=== PATIENT | male | born 1955 | race Caucasian/White ===

== ENCOUNTER 2017-01-17 21:15 | Emergency (ER) | payer OTHER ==
[2017-01-17 21:27] VITALS: BMI 26.6
[2017-01-17] MEDS ORDERED: SODIUM CHLORIDE 1,000 ML IV STA (21:49)
[2017-01-17] MEDS ORDERED: DUONEB NEB STA (21:49)
--- NOTE | 2017-01-17 21:49 | ED.PDOC ---
General ED Provider: Dr. SPENCER HENSON Chief Complaint: Fever Stated Complaint: Patient comes to the Er with Fever Tmax 102.8 cough productive of yelow sputum worsening of shortness of breath. Time Seen by Physician: 21:47 Mode of Arrival: Wheelchair Information Source: Patient, Family Primary Care Provider: JEANMARIE PADILLA Nursing and Triage Documentation Reviewed and Agree: Yes Miscellaneous Complaint Exam - Febrile Illness/Adult Complaint/Exam Onset/Duration: 1 day Symptoms Are: Still present Timing: Constant Highest Temperature Recorded: 104 Initial Severity: Severe Current Severity: Moderate Associated Signs and Symptoms: Reports: Short of air, Cough Current Antibiotic Use: No Last Time and Dose of Motrin (ibuprofen): Asprin one hour prior to arrival Differential Diagnoses: Pneumonia Quality Indicator For Non-Traumatic Chest Pain/Syncope: EKG Performed Review of Systems - Review Of Systems Constitutional: Reports: Fever, Malaise, Loss of appetite Respiratory: Reports: Cough, Short of air, Wheezing Cardiac: Reports: No symptoms GI: Reports: No symptoms : Reports: No symptoms Musculoskeletal: Reports: No symptoms Skin: Reports: No symptoms Neurological: Reports: No symptoms Endocrine: Reports: No symptoms Hematologic/Lymphatic: Reports: No symptoms All Other Systems: Reviewed and Negative Past Medical History - Past Medical History Endocrine: Reports: None Cardiovascular: Reports: Hypertension Respiratory: Reports: None Hematological: Reports: None Gastrointestinal: Reports: None Genitourinary: Reports: None Neuro/Psych: Reports: Anxiety, Other ( panic attacks ) Musculoskeletal: Reports: None Cancer: Reports: None Other Pertinent Past Medical History: saw urologist dr henderson in November follow up in six months - Surgical History General Surgical History: Reports: Back Surgery (5 back surgeries) - Family History Family History: Reports: Unknown - Social History Smoking Status: Current every day smoker, Light tobacco smoker Hx Substance Use: No Alcohol Screening: Occasionally - Immunizations Tetanus Shot up to Date: Yes Physical Exam - Physical Exam Appearance: Ill-appearing, Well-nourished Ill-appearing: Moderate Eyes: ELTON, EOMI, Conjunctiva clear ENT: Ears normal, Nose normal, Oropharynx normal Neck: Supple Respiratory: Airway patent, Breath sounds diminished, Respirations nonlabored, Rhonchi, Wheezes Cardiovascular: Pulses normal, No rub, No murmur, Tachycardia GI/: Soft, Nontender, No masses, Bowel sounds normal, No Organomegaly Musculoskeletal: Normal strength, ROM intact, No edema, No calf tenderness Skin: Warm, Dry, Normal color Neurological: Sensation intact, Motor intact, Reflexes intact, Cranial nerves intact, Alert, Oriented Psychiatric: Anxious Interpretation - Radiology Interpretation Radiology Interpretation By: Radiologist Radiology Results: Positive (no PE but bilateral infiltrates) Exam Interpreted: CT Scan Physician Notification - Case Discussed Physician Notified: Dr. Padilla Time of Notification: 02:08 (Transfer to [facility] ) Critical Care Note - Critical Care Note Total Time (mins): 30 Course - Course Hematology/Chemistry: 01/17/17 22:13 01/17/17 22:13 Orders, Labs, Meds: Lab Review 01/17/17 01/17/17 01/17/17 21:49 22:01 22:13 WBC 14.16 H RBC 4.30 L Hgb 10.7 L Hct 32.9 L MCV 76.5 L MCH 24.9 L MCHC 32.5 RDW Coeff of Mandy 17.1 H Plt Count 268 Immature Gran % (Auto) 0.3 Neut % (Auto) 81.1 Lymph % (Auto) 8.9 L [place] % (Auto) 7.8 Eos % (Auto) 1.5 Baso % (Auto) 0.4 Immature Gran # (Auto) 0.0 Neut # 11.5 H Lymph # 1.3 [place] # 1.1 Eos # 0.2 Baso # 0.1 D-Dimer 1.02 Puncture Site Rr O2 Saturation 88.0 L ABG pH 7.471 H ABG pCO2 36.4 ABG pO2 50.0 L* ABG HCO3 26.6 H ABG Total CO2 28 ABG Base Excess 3 H [place] Test + FiO2 % 21.0 Sodium 136 Potassium 3.6 Chloride 100 Carbon Dioxide 26 Anion Gap 13.6 BUN 9 Creatinine 0.90 Estimated GFR (MDRD) 86.00 BUN/Creatinine Ratio 10.00 Glucose 95 Lactic Acid 9.6 Calcium 9.4 Total Bilirubin 0.27 AST 31 ALT 22 Alkaline Phosphatase 110 Troponin I 0.0280 Total Protein 7.4 Albumin 3.3 L Globulin 4.1 Albumin/Globulin Ratio 0.80 Procalcitonin 1.22 Urine Color Urine Clarity Urine pH Ur Specific [place] Urine Protein Urine Glucose (UA) Urine Ketones Urine Blood Urine Nitrite Urine Bilirubin Urine Urobilinogen Ur Leukocyte Esterase Influenza A (Rapid) Negative Influenza B (Rapid) Negative 01/18/17 01:45 WBC RBC Hgb Hct MCV MCH MCHC RDW Coeff of Mandy Plt Count Immature Gran % (Auto) Neut % (Auto) Lymph % (Auto) [place] % (Auto) Eos % (Auto) Baso % (Auto) Immature Gran # (Auto) Neut # Lymph # [place] # Eos # Baso # D-Dimer Puncture Site O2 Saturation ABG pH ABG pCO2 ABG pO2 ABG HCO3 ABG Total CO2 ABG Base Excess [place] Test FiO2 % Sodium Potassium Chloride Carbon Dioxide Anion Gap BUN Creatinine Estimated GFR (MDRD) BUN/Creatinine Ratio Glucose Lactic Acid Calcium Total Bilirubin AST ALT Alkaline Phosphatase Troponin I Total Protein Albumin Globulin Albumin/Globulin Ratio Procalcitonin Urine Color Yellow Urine Clarity Clear Urine pH 7.5 Ur Specific [place] 1.015 Urine Protein Negative Urine Glucose (UA) Negative Urine Ketones Negative Urine Blood Negative Urine Nitrite Negative Urine Bilirubin Negative Urine Urobilinogen 0.2 Ur Leukocyte Esterase Negative Influenza A (Rapid) Influenza B (Rapid) Orders Category Date Time Status ABG DRAW REQUEST Stat CARDIO 01/17/17 21:49 Completed EKG-(ED ONLY) Stat CARDIO 01/17/17 21:50 Completed NEBULIZER TREATMENT Stat CARDIO 01/17/17 21:49 Completed NPO REMINDER: IMAGING ONCE CARE 01/17/17 23:47 Completed ED IV/MEDIPORT/POWERPORT .ONCE EMERGENCY 01/17/17 21:49 Active ED IV/MEDIPORT/POWERPORT .ONCE EMERGENCY 01/18/17 00:29 Active ABG Stat LAB 01/17/17 21:49 Completed BLOOD CULTURE Stat LAB 01/17/17 22:13 Results CBC W/ AUTO DIFF Stat LAB 01/17/17 22:13 Completed COMPREHENSIVE METABOLIC PANEL Stat LAB 01/17/17 22:13 Completed D-DIMER Stat LAB 01/17/17 22:13 Completed LACTIC ACID Stat LAB 01/17/17 22:13 Completed MOLECULAR GROUP A STREP Stat LAB 01/17/17 22:01 Completed PROCALCITONIN Stat LAB 01/17/17 22:13 Completed RAPID FLU A/B Stat LAB 01/17/17 22:01 Completed STREP SCREEN Stat LAB 01/17/17 22:01 Completed TROPONIN I Stat LAB 01/17/17 22:13 Completed UA [URINALYSIS C & S IF INDICATED] Stat LAB 01/18/17 01:45 Completed 0.9 % Sodium Chloride [Saline Flush] MEDS 01/17/17 21:49 Discontinued 1 syr IVF PRN PRN 0.9 % Sodium Chloride [Saline Flush] MEDS 01/18/17 00:29 Discontinued 1 syr IVF PRN PRN Acetaminophen [Tylenol] MEDS 01/17/17 22:42 Discontinued 1,000 mg PO ONCE STA Ipratropium/Albuterol Neb [Duoneb] MEDS 01/17/17 21:49 Discontinued 1 vial NEB ONCE STA Methylprednisolone Sod Succ/Pf [Solu-Medrol 125 mg] MEDS 01/17/17 22:55 Discontinued 125 mg IVP ONCE STA Piperacillin Sodium/Tazobactam [Zosyn 3.375 gm] 3.375 MEDS 01/18/17 02:06 Discontinued gm 0.9 % Sodium Chloride [Sodium Chloride] 100 ml IV ONCE Sodium Chloride 0.9% [Sodium Chloride] 1,000 ml MEDS 01/17/17 21:49 Discontinued IV BOLUS CHEST, 2 VIEWS PA & LAT Stat RADS 01/17/17 21:[address] CHEST PE PROTOCOL Stat RADS 01/18/17 00:15 Completed Medications Discontinued Medications Generic Name Dose Route Start Last Admin Trade Name Freq PRN Reason Stop Dose Admin Acetaminophen 1,000 mg 01/17/17 22:42 01/17/17 22:49 Tylenol PO 01/17/17 22:43 1,000 mg ONCE STA Administration Albuterol/Ipratropium 1 vial 01/17/17 21:49 01/17/17 22:42 Duoneb NEB 01/17/17 21:50 1 vial ONCE STA Administration Sodium Chloride 1,000 mls @ 1,000 mls/hr 01/17/17 21:49 01/17/17 22:27 Sodium Chloride IV 01/17/17 22:48 1,000 mls/hr BOLUS STA Administration Piperacillin Sod/Tazobactam 100 mls @ 100 mls/hr 01/18/17 02:06 01/18/17 02: 24 Sod 3.375 gm/ Sodium Chloride IV 01/18/17 03:05 100 mls/hr ONCE STA Administration Methylprednisolone Sodium Succinate 125 mg 01/17/17 22:55 01/17/17 23:05 Solu-Medrol 125 Mg IVP 01/17/17 22:56 125 mg ONCE STA Administration Sodium Chloride 1 syr 01/17/17 21:49 Saline Flush IVF PRN PRN To flush IV Sodium Chloride 1 syr 01/18/17 00:29 Saline Flush IVF PRN PRN To flush IV Vital Signs: Temp Pulse Resp BP Pulse Ox 01/18/17 02:20 98 F 105 H 20 121/88 96 01/17/17 21:16 103.6 F H 133 H 24 133/62 92 L Departure - Departure Time of Disposition: 02:07 Disposition: TSF SHORT-TRM HOSP Discharge Problem: Pneumonia Condition: Stable Pt referred to PMD for follow-up: Yes Allergies/Adverse Reactions: Allergies venom-honey bee [bee venom (honey bee)] Adverse Reaction (Verified 01/17/17 21: 25) Difficulty Breathing HAS EPI PEN Home Medications: Ambulatory Orders Cetirizine HCl [Zyrtec] 10 mg PO DAILY PRN 10/09/16 Cyclobenzaprine HCl [Flexeril] 10 mg PO TID 10/09/16 Escitalopram Oxalate [Lexapro] 20 mg PO DAILY 10/09/16 Gabapentin [Neurontin] 800 mg PO TID 10/09/16 Lisinopril/Hydrochlorothiazide [Lisinopril-Hctz 10-12.5 mg Tab] 20 mg PO DAILY 10/09/16 Meloxicam 15 mg PO DAILY 10/09/16 Mometasone Furoate [Asmanex Hfa] 220 mcg INH Q1-2H 10/09/16 Morphine Sulfate [Morphine Sulfate ER] 30 mg PO BID 10/09/16 Pantoprazole Sodium [Protonix] 40 mg PO QPM 10/09/16 Pregabalin [Lyrica] 150 mg PO TID 10/09/16 Zolpidem Tartrate [Ambien Cr] 10 mg PO BEDTIME 10/09/16 Albuterol Sulfate [Proair Hfa] 2 puff IH QID #1 puff 10/14/16 Aspirin/Calcium Carbonate/Mag [Aspirin Buffered 325 mg Tab] 325 mg PO DAILY Bisacodyl [Dulcolax] 5 mg PO DAILY PRN 01/17/17 Calcium Carb & Citrate/Vit D3 [Calcium + D3 ER Tablet] 1 tab PO BID 01/17/17 Methylcellulose [Citrucel] 500 mg PO TID 01/17/17 Multivitamin [Daily Multiple Vitamin] 1 each PO DAILY 01/17/17 Ondansetron HCl [Zofran Tab] 8 mg PO Q8H PRN 01/17/17 Hydrocodone Bit/Acetaminophen [[place] 5-325] 5 - 325 mg PO Q4HR PRN 01/18/17 Pt. Stabilized Within Hospital's Capabilities/Transferred To: [facility] Transfer Form Completed: Yes Disposition Discussed With: Patient, Family
[2017-01-17 22:19] LABS: BASOPHILS # (AUTO) 0.1 K/uL (0-0.2); BASOPHILS % (AUTO) 0.4 % (0.0-3.0); EOSINOPHILS # (AUTO) 0.2 K/ul (0.0-0.7); EOSINOPHILS % (AUTO) 1.5 % (0.0-7.0); HEMATOCRIT 32.9 % (42.0-52.0); HEMOGLOBIN 10.7 g/dl (14.0-18.0); IMMATURE GRANULOCYTE % (AUTO) 0.3 % (0.0-5.0); LYMPHOCYTES # (AUTO) 1.3 K/uL (0.60-3.4); LYMPHOCYTES % (AUTO) 8.9 (10.0-50.0); MEAN CORPUSCULAR HEMOGLOBIN 24.9 pg (27.0-31.0); MEAN CORPUSCULAR HGB CONC 32.5 (31.8-35.4); MEAN CORPUSCULAR VOLUME 76.5 fl (80.0-94.0); MONOCYTES # (AUTO) 1.1 K/uL (0.4-2.0); MONOCYTES % (AUTO) 7.8 (0-10); NEUTROPHILS # (AUTO) 11.5 K/ul (2.0-6.9); NEUTROPHILS % (AUTO) 81.1; PLATELET COUNT 268 10^3/uL (140-440); WHITE BLOOD COUNT 14.16 K/ul (4.2-10.2)
[2017-01-17 22:29] LABS: FLU INTERNAL QC INTERNAL QC VALID; RAPID FLU A NEGATIVE (NEGATIVE); RAPID FLU B NEGATIVE (NEGATIVE)
[2017-01-17 22:39] LABS: ABG PCO2 36.4 mmHg (35-45); ABG PH 7.471 (7.35-7.45)
[2017-01-17 22:41] LABS: ABG BASE EXCESS 3 (-2.0-2.0); ABG HCO3 26.6 (22.0-26.0); ABG TCO2 28 (22.0-28.0)
[2017-01-17] MEDS ORDERED: TYLENOL PO STA (22:42)
[2017-01-17 22:45] LABS: ALBUMIN 3.3 g/dL (3.4-5.0); ALBUMIN/GLOBULIN RATIO 0.8; ANION GAP 13.6; BILIRUBIN,TOTAL 0.27 mg/dL (0.00-1.20); CALCIUM 9.4 mg/dL (8.2-10.2); CREATININE 0.9 mg/dL (0.60-1.10); POTASSIUM 3.6 mmol/L (3.5-5.1); TOTAL PROTEIN 7.4 g/dL (5.8-8.1); TROPONIN I 0.028 ng/ml (0.0000-0.4000)
--- NOTE | 2017-01-17 22:53 | DI ---
Exam: Chest two-view History: Cough FINDINGS: Normal cardiomediastinal contours. Normal pulmonary vasculature. No infiltrative opacit ies. No acute chest wall abnormality. Mid-thoracic spinal stimulator leads in place. Impression: No acute cardiopulmonary disease.
[2017-01-17] MEDS ORDERED: SOLU-MEDROL 125 MG IVP STA (22:55)
--- NOTE | 2017-01-18 01:39 | CT ---
EXAM: CT pulmonary angiogram. HISTORY: Shortness of breath. Recent hernia surgery. PROCEDURE: After the intravenous injection of contrast a CT pulmonary angiogram was performed with contiguous axial CT images of the chest and multiplanar and 3-D reformats. FINDINGS: There is normal enhancement of the pulmonary arteries with no evidence of pulmonary emboli sm. The heart is within normal limits in size. The thoracic aorta is within normal limits in diame ter. There are calcified hilar lymph nodes. There are multiple enlarged non-calcified mediastinal and hilar lymph nodes measuring up to 1.8 cm in short axis. There are bilateral infiltrates and pat karl areas of consolidation. There are degenerative changes in the spine. There are dorsal column st imulator leads. There is a fluid density cyst in the liver. The adrenal glands are normal in appear ance. Impression: No evidence of pulmonary embolism. Bilateral infiltrates and consolidation consistent with pneumonia. Mediastinal and hilar lymphadenopathy as described which is probably reactive. Recommend follow-up CT in 3 months to assess stability.
[2017-01-18 01:53] LABS: BILIRUBIN,URINE Negative (NEGATIVE); KETONES,URINE Negative (NEGATIVE); LEUKOCYTE ESTERASE ,URINE Negative (NEGATIVE); NITRITE,URINE Negative (NEGATIVE); PH,URINE 7.5 (5-9); PROTEIN,URINE Negative (NEGATIVE); URINE, BLOOD Negative (NEGATIVE)
[2017-01-18 01:54] LABS: ADD URINE MICROSCOPIC NO
[2017-01-18] MEDS ORDERED: ZOSYN 3.375 GM 3.375 GM in SODIUM CHLORIDE 100 ML IV STA (02:06)
[2017-01-18 02:29] VITALS: BP 121/88; TEMP 98
== END 2017-01-18 02:25 | disposition short-term general hospital (02) ==
LOC: ED 21:15
DX: J18.9 Pneumonia, unspecified organism (principal); Z79.899 Other long term (current) drug therapy; F17.210 Nicotine dependence, cigarettes, uncomplicated
CPT/HCPCS: 36415; 80053; 81001; 82803; 83605; 84145; 84484; 85025; 85379; 87040; 87651; 87804; 87880; 93005; 93010; 94640; 96361; 96365; 96375; 99285

== ENCOUNTER 2017-03-24 10:54 | Emergency (ER) | payer OTHER ==
[2017-03-24 10:58] VITALS: BP 113/59; TEMP 98.3; BMI 27.1
--- NOTE | 2017-03-24 11:24 | ED.PDOC ---
General ED Provider: Dr. NAZANIN COLBY Chief Complaint: Finger Pain/Injury Stated Complaint: LEFT HAND, WRIST PAIN Time Seen by Physician: 11:00 (CANT RECALL TRAUMA) Mode of Arrival: Walk-In Information Source: Patient Exam Limitations: No limitations Primary Care Provider: JEANMARIE ABRAHAM Nursing and Triage Documentation Reviewed and Agree: Yes (LEFT THUMB GROSSLY EDEMATOUS) Musculoskeletal Complaint Exam - Hand/Wrist Complaint/Exam Location of Pain: Reports: Left, Hand, Wrist Mechanism of Injury: Reports: No known trauma Onset/Duration: 2 DAYS Symptoms Are: Still present Onset of Pain: Reports: Days Initial Severity: Mild Current Severity: Mild Location: Reports: Discrete (LEFT THUMB BASE ) Character: Reports: Aching, Spasmodic Alleviating: Reports: None Aggravating: Reports: Movement Associated Signs and Symptoms: Reports: Swelling (LEFT THUMB BASE ). Denies: Redness, Bruising, Fever, Weakness, Numbness, Tingling Dominant Hand: Right Related Surgical History: Reports: None Hand/Wrist Findings: Present: Swelling (SEE ABOVE ) Tenderness: Present: Ulna. Absent: Snuff box Compartment Syndrome Risk Factors: Present: Pain Differential Diagnoses: Closed Fracture, Sprain, Strain Review of Systems - Review Of Systems Constitutional: Reports: Other (FEVER OFF AND ON DENTAL PROBLEMS ) Eyes: Reports: No symptoms Ears, Nose, Mouth, Throat: Reports: No symptoms Respiratory: Reports: No symptoms Cardiac: Reports: No symptoms GI: Reports: No symptoms : Reports: No symptoms Musculoskeletal: Reports: Other (LEFT WRIST PAIN, THUMB PAIN) Skin: Reports: No symptoms Neurological: Reports: No symptoms Endocrine: Reports: No symptoms Hematologic/Lymphatic: Reports: No symptoms All Other Systems: Reviewed and Negative Past Medical History - Past Medical History Endocrine: Reports: None Cardiovascular: Reports: Hypertension Respiratory: Reports: None Hematological: Reports: None Gastrointestinal: Reports: None Genitourinary: Reports: None Neuro/Psych: Reports: Anxiety, Other ( panic attacks ) Musculoskeletal: Reports: None Cancer: Reports: None Other Pertinent Past Medical History: saw urologist dr henderson in November follow up in six months - Surgical History General Surgical History: Reports: Back Surgery (5 back surgeries) - Family History Family History: Reports: Unknown - Social History Smoking Status: Current every day smoker Hx Substance Use: No Alcohol Screening: Occasionally Physical Exam - Physical Exam Appearance: Well-appearing, No pain distress, Well-nourished Eyes: ELTON, EOMI, Conjunctiva clear ENT: Ears normal, Nose normal, Oropharynx normal Respiratory: Airway patent, Breath sounds clear, Breath sounds equal, Respirations nonlabored Cardiovascular: RRR, Pulses normal, No rub, No murmur GI/: Soft, Nontender, No masses, Bowel sounds normal, No Organomegaly Musculoskeletal: Limited ROM (LEFT THUMB ALSO SWOLLEN LEFT THUMB) Skin: Warm, Dry, Normal color Neurological: Sensation intact, Motor intact, Reflexes intact, Cranial nerves intact, Alert, Oriented Psychiatric: Affect appropriate, Mood appropriate Interpretation - Radiology Interpretation Radiology Interpretation By: Radiologist Radiology Results: Positive (F/B BASE OF THE LEFT THUMB ON THE X RAY) Critical Care Note - Critical Care Note Total Time (mins): 0 Course - Course Orders, Labs, Meds: Orders Category Date Time Status CT WRIST LEFT WITHOUT CONTRAST Stat RADS 03/24/17 11:13 Completed HAND, LEFT 3 VIEWS Stat RADS 03/24/17 11:11 Completed Vital Signs: Temp Pulse Resp BP Pulse Ox 03/24/17 10:54 98.3 F 107 H 20 113/59 L 94 L Departure - Departure Time of Disposition: 12:09 (THE F/B DISCUSSED WITH PT HE WILL FOLLOW UP WITH PMD DOES NOT RFECALL TRAUMA ) Disposition: HOME SELF-CARE Discharge Problem: Injury of finger, Pain in finger Instructions: Finger Sprain (ED), Osteoarthritis (ED) Condition: Good Pt referred to PMD for follow-up: No Additional Instructions: Please call your Family Physician as soon as possible to schedule a follow-up appointment. Allergies/Adverse Reactions: Allergies venom-honey bee [bee venom (honey bee)] Adverse Reaction (Verified 03/24/17 10: 58) Difficulty Breathing HAS EPI PEN Home Medications: Ambulatory Orders Cetirizine HCl [Zyrtec] 10 mg PO DAILY PRN 10/09/16 Cyclobenzaprine HCl [Flexeril] 10 mg PO TID 10/09/16 Escitalopram Oxalate [Lexapro] 20 mg PO DAILY 10/09/16 Gabapentin [Neurontin] 800 mg PO TID 10/09/16 Lisinopril/Hydrochlorothiazide [Lisinopril-Hctz 10-12.5 mg Tab] 20 mg PO DAILY 10/09/16 Meloxicam 15 mg PO DAILY 12/04/16 Morphine Sulfate [Morphine Sulfate ER] 30 mg PO BID 10/09/16 Pantoprazole Sodium [Protonix] 40 mg PO QPM 10/09/16 Pregabalin [Lyrica] 150 mg PO TID 10/09/16 Zolpidem Tartrate [Ambien Cr] 10 mg PO BEDTIME 10/09/16 Albuterol Sulfate [Proair Hfa] 2 puff IH QID #1 puff 10/14/16 Aspirin/Calcium Carbonate/Mag [Aspirin Buffered 325 mg Tab] 325 mg PO DAILY Bisacodyl [Dulcolax] 5 mg PO DAILY PRN 01/17/17 Calcium Carb & Citrate/Vit D3 [Calcium + D3 ER Tablet] 1 tab PO BID 01/17/17 Methylcellulose [Citrucel] 500 mg PO TID 01/17/17 Multivitamin [Daily Multiple Vitamin] 1 each PO DAILY 01/17/17 Ondansetron HCl [Zofran Tab] 8 mg PO Q8H PRN 01/17/17 Hydrocodone Bit/Acetaminophen [[place] 5-325] 5 - 325 mg PO Q4HR PRN 01/18/17 Cefdinir [Omnicef] 300 mg PO Q12HR 03/24/17 Prednisone 5 mg PO DAILYWM 03/24/17 Disposition Discussed With: Patient, Family
--- NOTE | 2017-03-24 11:36 | DI ---
Exam: Three x-rays of the left hand. Comparison: Right hand x-rays performed on 10/09/2012. Reason for exam: Left thumb swollen. FINDINGS: No acute fracture dislocation. There are mild to moderate degenerative changes seen with in the wrist and left hand. There is a radiopaque retained foreign body adjacent to the first metac arpal phalangeal joint space. Impression: 1. No acute fracture or dislocation in the left hand. 2. Small radiopaque retained foreign body in the soft tissues adjacent to the left first metacarpal phalangeal joint space. Recommend direct visualization and correlate with site of patient's pain a nd swelling. Report faxed at [id number] hours on 03/24/2017.
--- NOTE | 2017-03-24 11:58 | CT ---
EXAM: CT of the left wrist without contrast History: Left thumb pain and swelling. Comparison: Left hand radiograph 03/24/2017 Technique: Multiplanar CT images through the left wrist were obtained without the administration of IV contrast Findings: No acute fracture or dislocation. 2 mm radiopaque foreign bodies seen within the skin ad jacent to the distal first metatarsal. Moderate to severe narrowing of the first carpal metacarpal joint with subchondral sclerosis, subchondral cysts and osteophyte formation. Mild to moderate poly articular joint space narrowing seen elsewhere. Impression: 1. No acute osseous abnormality. 2. 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 3. Small radiopaque foreign body seen within the skin along the radial side of the distal first met acarpal.
== END 2017-03-24 12:32 | disposition home or self-care (01) ==
LOC: ED 10:54
DX: M79.645 Pain in left finger(s) (principal); M25.532 Pain in left wrist; M79.642 Pain in left hand; M79.89 Other specified soft tissue disorders; M79.5 Residual foreign body in soft tissue; F17.210 Nicotine dependence, cigarettes, uncomplicated
CPT/HCPCS: 99282